=== PATIENT | female | born 1990 | race Caucasian/White ===

== ENCOUNTER 2021-09-18 11:06 | Emergency (ER) | payer OTHER, SELFPAY ==
[2021-09-18 12:03] VITALS: BP 141/59; PULSE 119; RESP 20; TEMP 37.5; O2SAT 98
--- NOTE | 2021-09-18 13:28 | ED.SKABFB ---
HPI - Skin/Abscess/Foreign Bdy General Chief complaint: Extremity Injury, Upper Stated complaint: abscess on finger Time Seen by Provider: 09/18/21 13:20 Source: patient and RN notes reviewed Mode of arrival: ambulatory Limitations: no limitations History of Present Illness HPI narrative: Patient presents today complaining of a left third finger pain and swelling x1 week. Today symptoms had worsened and pus and blood started to drain from underneath the fingernail. After draining, she currently rates her pain 1/10 and has tried no [id number] treatment prior to arrival. Related Data Allergies Allergy/AdvReac Type Severity Reaction Status Date / Time Sulfa (Sulfonamide Allergy Intermediate Rash Verified 09/18/21 12:34 Antibiotics) Review of Systems Review of Systems: CONSTITUTIONAL: Denies body aches, fever, chills, or sweats. EYES: Denies visual changes, redness, or discharge. ENT: Denies rhinorrhea, congestion, sore throat, or otalgia. CARDIOVASCULAR: Denies chest pain, palpitations, or edema. RESPIRATORY: Denies cough or dyspnea. GASTROINTESTINAL: Denies abdominal pain, nausea, vomiting, or diarrhea. GENITOURINARY: Denies dysuria or hematuria. SKIN: Denies rash, itching, or wounds. Redness and swelling around the left third fingernail MUSCULOSKELETAL: Denies back pain, joint pain, or myalgia. NEUROLOGIC: Denies headache, numbness, tingling, or weakness. PSYCH: Denies depression or anxiety. PMFSH Comments At time of signature, I have reviewed and agree with nursing past medical, surgical, social and family history unless otherwise noted. Please see nursing chart for further information. There is no relevant family history pertinent to the presenting complaint Exam Narrative: GENERAL: Well-appearing, well-nourished, and in no acute distress. HEAD: Normocephalic, atraumatic. EYES: EOMI. No redness or drainage. Conjunctivae normal. ENT: Mucous membranes pink and moist. NECK: Normal AROM. CHEST: No respiratory distress. EXTREMITIES: Left third finger: Redness and swelling to the nail fold with a small scab. Mildly tender to palpation. No obvious drainage or blood noted. Fingernail is intact with no subungual abscess noted. Distal sensation intact. Capillary refill normal. SKIN: Warm, dry, no rash. Capillary refill normal. Normal skin turgor. NEURO: No focal deficits. Alert and oriented x3. Gait steady. PSYCH: Normal affect. No signs of depression or anxiety. Course Course Level of Care: Express Care Visit Vital Signs Vital signs: Vital Signs Temperature 99.5 F 09/18/21 12:03 Pulse Rate 119 H 09/18/21 12:03 Respiratory Rate 20 09/18/21 12:03 Blood Pressure 141/59 H 09/18/21 12:03 Pulse Oximetry 98 09/18/21 12:03 Temperature 99.5 F 09/18/21 12:03 Pulse Rate 119 H 09/18/21 12:03 Respiratory Rate 20 09/18/21 12:03 Blood Pressure 141/59 H 09/18/21 12:03 Pulse Oximetry 98 09/18/21 12:03 Reviewed. Pt has been instructed to follow up with her PCP regarding her elevated blood pressure today. MDM - Skin/Abscess/Foreign Bdy Differential Diagnosis Differential diagnosis: Likely other (Paronychia, subungual abscess, cellulitis) Critical Care Time Critical Care Time Critical Care Time: No Discharge Plan Discharge Clinical Impression: Acute paronychia of finger of left hand Patient Disposition: Home, Self-Care Condition: Stable Instructions: Antibiotic Form, Paronychia (ED) Additional Instructions: Please take the antibiotics as prescribed. Soak the finger in warm water to help facilitate drainage. Follow-up with your doctor with any concerns. Your blood pressure was elevated above 120/80 today at Urgent Care. This puts you above the threshold for follow up. Please schedule a followup visit with your personal physician as soon as possible, for further evaluation and treatment. Even blood pressure exceeding 120/80 may indicate pre-hypertension.
== END 2021-09-18 13:35 | disposition home or self-care (01) ==
PROVIDERS: Emergency Provider Nurse Practitioner
DX: L03.012 Cellulitis of left finger (principal)
CPT/HCPCS: 99213; G0463

== ENCOUNTER 2021-10-15 13:02 | Emergency (ER) | payer OTHER, SELFPAY ==
--- NOTE | ~2021-10-15 | XR_ITS ---
EXAMINATION: XR chest 2V EXAM DATE: 10/15/2021 14:52 INDICATION: Cough, Covid Exposure . TECHNIQUE: Frontal and lateral projections of the chest obtained and reviewed. There is no prior arnaud dy for comparison. FINDINGS: The lungs are clear. There are no pleural effusions. The cardiomediastinal silhouette is within normal limits. There is no pneumothorax suspected. The bones and soft tissues are unremarkab le. IMPRESSION: No acute cardiopulmonary findings. Reviewed, dictated and finalized at location G. [employer]
[2021-10-15 13:12] VITALS: BP 127/78; PULSE 78; RESP 20; TEMP 36.8; O2SAT 99
--- NOTE | 2021-10-15 14:39 | ED.GENADULT ---
HPI - General Adult General Chief complaint: Upper Respiratory Infection Stated complaint: chest congestion and sore throat Source: patient Mode of arrival: ambulatory Limitations: no limitations History of Present Illness HPI narrative: Patient presents for evaluation of cough. She indicates that yesterday she had a tickle in (her) throat . She she has a significant nonproductive cough, burning sensation in her chest and a sore throat. She denies any fever, chills, nausea, vomiting. No loss of sense of taste or smell. She does have some diarrhea. Her brother and her mother, both of with whom she lives, have COVID. She took a COVID test last night that was negative. She smokes 1 to 2 packs/week. She also smokes marijuana on a daily basis. She has received her COVID vaccinations. No personal history of COVID. No additional complaints or concerns. Related Data Allergies Allergy/AdvReac Type Severity Reaction Status Date / Time No Known Allergies Allergy Verified 10/15/21 14:54 Review of Systems Review of Systems: CONSTITUTIONAL: Denies fever, chills, or sweats. EYES: Denies visual changes, redness, or discharge. ENT: Reports sore throat. Denies rhinorrhea, congestion, or otalgia. CARDIOVASCULAR: Reports burning sensation in the chest. Denies chest pain, palpitations, or edema. RESPIRATORY: Reports nonproductive cough. Denies shortness of breath. GASTROINTESTINAL: Denies abdominal pain, nausea, vomiting, or diarrhea. GENITOURINARY: Denies dysuria or hematuria. SKIN: Denies rash or itching. MUSCULOSKELETAL: Denies back pain, joint pain, or myalgia. NEUROLOGIC: Denies headache, numbness, dizziness, or weakness. PSYCHIATRIC: Denies anxiety or depression. [facility] Past Medical History Medical History (Updated 10/15/21 @ 15:48 by LANCE Lorenzana, DELROY) History of ITP Surgical History Surgical History History of tonsillectomy Family History Family History Mother COVID Social History Social History Smoking packs per day: 0.25 Smoking cigarettes per day: 5.0 Smoking status: Current every day smoker Alcohol intake: never Substance use: current Substance use type: marijuana Living arrangements: with family Gender identity (if verbalized by the patient): Female Spiritual care concerns: No Exam Narrative: GENERAL: Well-appearing, well-nourished, and in no acute distress. HEAD: Normocephalic, atraumatic. EYES: PERRLA and EOMI. ENT: Nares clear, no rhinorrhea or epistaxis. Mucous membranes moist. Oropharynx without tonsillar hypertrophy exudate or other lesions. Bilateral ear canals are ceruminous NECK: Supple. No adenopathy or masses. No carotid bruits or JVD CHEST: Cough present on exam. Clear to auscultation. No respiratory distress. No wheezes rales or rhonchi HEART: Regular rate and rhythm. No murmur heard. Normal peripheral pulses. ABDOMEN: Soft, nontender, nondistended, normal active bowel sounds. EXTREMITIES: Normal range of motion. No edema. SKIN: Warm, dry, no rash. NEURO: No focal deficits. Alert and oriented x3. PSYCH: Normal mood and affect. Course Course Emergency Course: This is a 31-year-old female who presented with complaints of respiratory symptoms with recent exposure to Covid. Chest x-ray is negative. Throat culture was obtained rapid strep not available. Rapid Covid negative. Will send for PCR. She is most likely Covid positive. Advised on supportive care. Will discharge with Tessalon. Advised follow-up outpatient for further evaluation treatment and return for worsening symptoms. Patient agreed with plan of care. Level of Care: Express Care Visit Vital Signs Vital signs: Vital Signs Temperature 36.8 C 10/15/21 13:12 Pulse Rate 78 10/15/21 13:12 Respiratory Rate 20 02/0
[2021-10-17 18:01] LABS: SARS-CoV-2 RNA PCR Positive
== END 2021-10-15 15:50 | disposition home or self-care (01) ==
PROVIDERS: Emergency Provider Nurse Practitioner
DX: U07.1 COVID-19 (principal); D69.3 Immune thrombocytopenic purpura; F17.210 Nicotine dependence, cigarettes, uncomplicated
CPT/HCPCS: 71046; 87081; 87426; 99213; C9803; G0463; U0003; U0005